=== PATIENT | male | born 1995 | race Caucasian/White ===

== ENCOUNTER 2021-11-12 16:38 | Emergency (ER) | payer OTHER, SELFPAY ==
[2021-11-12 16:43] VITALS: BP 121/68; PULSE 113; RESP 16; TEMP 36.7; O2SAT 95
[2021-11-12] MEDS: TETANUS,DIPHTHERIA,AC PERTUSSIS ADULT (0.5 ML) BOOSTRIX IM (17:01)
--- NOTE | 2021-11-12 17:40 | ED.WOUNDLAC ---
HPI - Wound/Laceration General Chief Complaint: Wound/Laceration Stated Complaint: cut elbow on screen door Time Seen by Provider: 11/12/21 16:45 History of Present Illness HPI narrative: 26 year old male presents to ER for evaluation of multiple lacerations to right arm. Patient states he was trying to catch his glass door from sliding off the hinge when it slipped and broke. This caused multiple lacerations to his RUE. He then attempted to pharmacy picking tech pieces of the glass and cut his left index finger. Tetanus is not UTD Related Data Allergies Allergy/AdvReac Type Severity Reaction Status Date / Time No Known Allergies Allergy Verified 11/12/21 17:11 Review of Systems Review of Systems: CONSTITUTIONAL: Denies fever, chills, or sweats. EYES: Denies visual changes, redness, or discharge. ENT: Denies rhinorrhea, congestion, sore throat, or otalgia. CARDIOVASCULAR: Denies chest pain, palpitations, or edema. RESPIRATORY: Denies cough or dyspnea. GASTROINTESTINAL: Denies abdominal pain, nausea, vomiting, or diarrhea. GENITOURINARY: Denies dysuria or hematuria. SKIN: Denies rash or itching. MUSCULOSKELETAL: Denies back pain, joint pain, or myalgia. NEUROLOGIC: Denies headache, numbness, dizziness, or weakness. PSYCHIATRIC: Denies anxiety or depression. Exam Narrative: GENERAL: Well-appearing, well-nourished, and in no acute distress. HEAD: Normocephalic, atraumatic. EYES: PERRLA and EOMI. CHEST: Clear to auscultation. No respiratory distress. No wheezes rales or rhonchi HEART: Regular rate and rhythm. No murmur heard. Normal peripheral pulses. ABDOMEN: Soft, nontender, nondistended, normal active bowel sounds. EXTREMITIES: Normal range of motion. No edema. SKIN: Warm, dry, no rash. RUE: 2.5 cm laceration to anterior side right wrist; 2 cm laceration to posterior right forearm; 2 cm laceration to right elbow; 1 cm laceration to posterior right tricep; full range of motion to right wrist and right elbow without joint laxity; neuromuscular intact distally NEURO: No focal deficits. Alert and oriented x3. PSYCH: Normal mood and affect. Course Vital Signs Vital signs: Vital Signs Temperature 36.7 C 11/12/21 16:43 Pulse Rate 113 H 11/12/21 16:43 Respiratory Rate 16 11/12/21 16:43 Blood Pressure 121/68 11/12/21 16:43 Pulse Oximetry 95 11/12/21 16:43 Oxygen Delivery Room Air 11/12/21 16:43 Temperature 36.7 C 11/12/21 16:43 Pulse Rate 113 H 11/12/21 16:43 Respiratory Rate 16 11/12/21 16:43 Blood Pressure 121/68 11/12/21 16:43 Pulse Oximetry 95 11/12/21 16:43 Oxygen Delivery Room Air 11/12/21 16:43 Procedures Laceration Laceration 1: Date: 11/12/21 Time: 17:46 Site: upper extremity Side (If applicable): right Size (cm): 2.5 Description: linear Depth: simple, single layer Local Anesthetic: lidocaine 1% and with epi Amount of anesthesia used (mL): 3 Pre-repair: irrigated ====== Skin Level ====== Skin layer closed with: nylon Size (cm): 4-0 Number of sutures: 5 Technique: simple, interrupted ====== Subcutaneous Layer ====== ====== Muscle Layer ====== ====== Tendon Layer ====== Laceration 2: Date: 11/12/21 Time: 17:48 Site: upper extremity Side (If applicable): right Size (cm): 2 Description: linear Depth: simple, single layer Local Anesthetic: lidocaine 1% and with epi Amount of anesthesia used (mL): 3 Pre-repair: irrigated ====== Skin Level ====== Skin layer closed with: nylon Size (cm): 4-0 Number of sutures: 4 Technique: simple, interrupted ====== Subcutaneous Layer ====== ====== Muscle Layer ====== ====== Tendon Layer ====== Laceration 3: Date: 11/12/21 Time: 17:49 Site: upper extremity Side (If applicable): right Siz
--- NOTE | 2021-11-12 17:48 | PC.NURSE ---
Telfa, kerlix, and coban applied to wounds.
== END 2021-11-12 17:59 | disposition home or self-care (01) ==
PROVIDERS: Emergency Provider Nurse Practitioner Family
DX: S51.011A Laceration without foreign body of right elbow, initial encounter (principal); S61.511A Laceration without foreign body of right wrist, initial encounter; S51.811A Laceration without foreign body of right forearm, initial encounter; S41.111A Laceration without foreign body of right upper arm, initial encounter; Z23 Encounter for immunization; W25.XXXA Contact with sharp glass, initial encounter
CPT/HCPCS: 12002; 90471; 90715; 99283

== ENCOUNTER 2022-12-31 08:53 | Emergency (ER) | payer OTHER, SELFPAY ==
[2022-12-31 09:01] VITALS: BP 108/60; PULSE 67; RESP 16; TEMP 36.4; O2SAT 99
--- NOTE | 2022-12-31 11:12 | ED.BACK ---
HPI - Back Pain/Injury General Chief Complaint: Back Pain/Injury <Shannon Torres PA-C - Last Filed: 12/31/22 11:22> Stated Complaint: back/neck <ROBERTO Howell Last Filed: 12/31/22 11:22> Time Seen by Provider: 12/31/22 10:37 <Shannon Torres PA-C - Last Filed: 12/31/22 11:22> History of Present Illness HPI Narrative: 27-year-old male reports for evaluation of acute on chronic upper left thoracic back pain and neck pain x2 weeks. Patient states he works out and frequently strains his neck and back. States he deals with chronic neck and back pain that usually resolves after a few days, however this has been more persistent so he went to urgent care a few days ago. States he was prescribed a muscle relaxer which significantly improved his symptoms, however came to the ED for further evaluation. States the pain is mostly in his left upper back and feels tight. He denies chest pain or shortness of breath, fever, numbness or paresthesias, upper or lower extremity weakness, difficulty walking, loss of bowel or bladder control or retention, saddle anesthesia. He denies history of IV drug use, chronic steroid or immunosuppressant use. Denies recent injury or trauma. States he had x-rays performed at urgent care which did not show any acute abnormality. <Shannon Torres PA-C - Last Filed: 12/31/22 11:22> Related Data Allergies/Adverse Reactions: Allergies Allergy/AdvReac Type Severity Reaction Status Date / Time No Known Allergies Allergy Verified 12/31/22 11:16 <ROBERTO Howell Last Filed: 12/31/22 11:22> Review of Systems Review of Systems: CONSTITUTIONAL: Denies fever, chills EYES: Denies visual changes, redness, or discharge. ENT: Denies rhinorrhea, congestion, sore throat, or otalgia. CARDIOVASCULAR: Denies chest pain, palpitations, or edema. RESPIRATORY: Denies cough or dyspnea. GASTROINTESTINAL: Denies abdominal pain, nausea, vomiting, or diarrhea. GENITOURINARY: Denies dysuria or hematuria. SKIN: Denies rash or itching. MUSCULOSKELETAL: See HPI NEUROLOGIC: Denies headache, numbness, dizziness, or weakness. PSYCHIATRIC: Denies anxiety or depression. <Shannon Torres PA-C - Last Filed: 12/31/22 11:22> Exam Narrative: GENERAL: Well-appearing, in no acute distress. Patient resting comfortably exam bed. He is pleasant and conversational. HEAD: Normocephalic EYES: PERRLA ENT: Nares clear. Mucous membranes moist. Oropharynx without tonsillar hypertrophy exudate or other lesions. NECK: No midline vertebral spinous tenderness, step-offs or deformities. Full range of motion of neck. No tenderness over the trapezius or paraspinous muscles of the neck. BACK: No midline vertebral spinous tenderness, step-offs or deformities. Tenderness to palpation of the upper left paraspinous muscles without overlying skin changes. No tenderness to remainder of back. No saddle anesthesia. CHEST: No respiratory distress. Clear to auscultation, no adventitious breath sounds. HEART: Regular rate and rhythm. No murmur heard. Normal peripheral pulses. EXTREMITIES: Full active and passive range of motion of bilateral shoulders. Negative empty can, negative liftoff test. Normal internal and external rotation. No tenderness to shoulders or upper extremities. SKIN: Warm, dry, no rash. NEURO: No focal deficits. Alert and oriented x3. Strength 5/5 in BUE and BLE. Patient tach throughout. Ambulatory without difficulty. PSYCH: Normal mood and affect. <Shannon Torres PA-C - Last Filed: 12/31/22 11:22> Course V[employer]IC/PA Physician Supervision I agree with midlevel documentation; I performed the medical decision making component of this evaluation. <Jillian Duvall MD - Last Filed: 12/31/22 14:20> Vital Signs Vital signs: Vital Signs Temperature 97.6 F 12/31/22 09:01 Pulse Rate 67 12/31/22 09:01 Respiratory Rate 16 12/31/22 09:01 Blood Pressure 108/60 12/31/22 09
== END 2022-12-31 11:28 | disposition home or self-care (01) ==
PROVIDERS: Emergency Provider Physician Assistant
DX: S29.012A Strain of muscle and tendon of back wall of thorax, initial encounter (principal); X58.XXXA Exposure to other specified factors, initial encounter
CPT/HCPCS: 99283